=== PATIENT | female | born 1940 | race Caucasian/White ===

== ENCOUNTER 2020-06-30 23:09 | Observation (INO) | payer OTHER ==
--- OUTSIDE RECORDS SUMMARY | 2020-06-30 23:47 | XMS REPORT | Continuity of Care Document ---
:1940 Author Organization [facility] t Address [facility] [place] [address] Care Team Providers Name Role Phone Alex KING, Alex Primary Care Physician LUANNE NUNEZ Attending Clinician Unavailable Problems This patient has no known problems. Allergies, Adverse Reactions, Alerts This patient has no known allergies or adverse reactions. Social History Social Habit Start Date Stop Date Quantity Comments Source Sex Ass[birth year] At [birth year] [place] [facility] 00:00:00 00:00:00 Medications This patient has no known medications. Procedures This patient has no known procedures. Plan of Care Planned Activity Planned Date Details Comments Source Future Scheduled 2020-10-19 INFLUENZA VACCINE [place] [place] [employer] [facility] 00:00:00 [code = INFLUENZA VACCINE] Future Scheduled 2007-05-25 65+ PNEUMOCOCCAL [place] [employer] [facility] 00:00:00 VACCINE (1 of 1 - PPSV23) [code = 65+ PNEUMOCOCCAL VACCINE (1 of 1 - PPSV23)] Future Scheduled 1992 SHINGLES VACCINES (#1) [place] [facility] [employer] [facility] 00:00:00 [code = SHINGLES VACCINES (#1)] Future Scheduled 1960 Hepatitis C screening [facility] [employer] [facility] 00:00:00 (procedure) [code = 664808486] Future Scheduled 1958 COVID-19 VACCINE (1) Ghassan sweeney [employer] [facility] 00:00:00 [code = COVID-19 VACCINE (1)] Encounters Start End Encounter Admission Attending Care Care Encounter Source Date/Time Date/Time Type Type Clinicians Facility Department ID 2019-05-16 2019-05-16 Outpatient ENRIQUE [facility] [id number] [place] 00:00:00 00:00:00 [facility] [address] 2019-05-16 2019-05-16 Outpatient [facility] [id number] [place] 00:00:00 00:00:00 [facility] [address] Results This patient has no known results.
[2020-07-01] MEDS ORDERED: ONDANSETRON 4 MG/2 ML VIAL IV PRN (00:27)
[2020-07-01] MEDS ORDERED: ACETAMINOPHEN 500 MG TAB PO PRN (00:27)
[2020-07-01] MEDS ORDERED: MELATONIN 5 MG TABLET PO PRN (00:30)
[2020-07-01] MEDS ORDERED: BENZONATATE 100 MG CAP PO PRN (00:30)
--- NOTE | 2020-07-01 01:07 | P.HP ---
Certification for Inpatient Patient admitted to: Observation With expected LOS: <2 Midnights Patient will require the following post-hospital care: None Practitioner: I am a practitioner with admitting privileges, knowledge of patient current condition, hospital course, and medical plan of care. Services: Services provided to patient in accordance with Admission requirements found in Title 42 Section 412.3 of the Code of Federal Regulations <Tyler Roth - Last Filed: 07/01/20 01:05> Patient History Date of Service: 07/01/20 Reason for admission: COVID pneumonia History of Present Illness: 72-year-old female with history of hypertension, diabetes mellitus type 2 presented to [facility] emergency department for evaluation of back pain and cough. Patient reports that she has been having upper respiratory symptoms for approximately the last 10 days but persistent cough over the course of the last 6 days. Patient evaluated at [facility] emergency department with labs, CT thoracic and lumbar spine, CT PE protocol, chest x-ray, EKG. Labs significant for glucose 164 sodium 131 chloride 97 D-dimer 609 white blood cell count 5.9 CT PE protocol significant for no PE multi lobar interstitial pneumonia, 2 small noncalcified nodule seen in the right lower lobe which are deemed as low risk without need for follow up. ED provider at [facility] concerned as patient tested positive for Fernandes virus and saturations were in the low 90s, wish for evaluation and management to be continued here. - Past Medical/Surgical History -: Hypertension -: Diabetes mellitus type 2 -: Bladder suspension Psychosocial/ Personal History: Patient lives alone, is retired - Family History Family History: Reviewed- Non-Contributory - Social History Smoking Status: Never smoker Alcohol use: No CD- Drugs: No Caffeine use: Yes Place of Residence: Home <Tyler Roth - Last Filed: 07/01/20 01:05> Date of Service: 07/01/20 <Shimon Monique - Last Filed: 07/01/20 20:09> Review of Systems Respiratory: Cough Musculoskeletal: Back Pain <GonzalezTyler - Last Filed: 07/01/20 01:05> Physical Examination - Physical Exam General: Alert, In no apparent distress HEENT: Atraumatic, PERRLA, Mucous membr. moist/pink, EOMI, Sclerae nonicteric Neck: Supple, 2+ carotid pulse no bruit, No LAD, Without JVD or thyroid abnormality Respiratory: Clear to auscultation bilaterally, Normal air movement Cardiovascular: Regular rate/rhythm, Normal S1 S2 Gastrointestinal: Normal bowel sounds, No tenderness Musculoskeletal: No tenderness Integumentary: No rashes Neurological: Normal speech, Normal strength at 5/5 x4 extr, Normal tone, Normal affect <Tyler Roth - Last Filed: 07/01/20 01:05> - Studies Laboratory Data (last 24 hrs) 07/01/20 05:41: Sodium 129 L, Potassium 4.3, BUN 19 H, Creatinine 1.07, Glucose 215 H, Magnesium 1.7 L, Total Bilirubin 0.2, AST 16, ALT 28, Alkaline Phosphatase 95 07/01/20 05:41: WBC 3.80 L, Hgb 11.5 L, Hct 32.6 L, Plt Count 216 <Shimon Monique - Last Filed: 07/01/20 20:09> Assessment and Plan - Plan Assessment COVID-19 pneumonia Diabetes mellitus type 2 Hypertension Plan COVID-19 pneumonia: Patient currently without any oxygen requirement, will obtain daily room air saturations and room air saturations for home oxygen. Pulmonology consulted. Continue with IV steroids, oral ivermectin, oral supplements, aspirin. Appreciate further input from pulmonology. Diabetes mellitus type 2: A.c. HS Accu-Cheks, sliding scale insulin therapy. A1c with morning labs Hypertension: Obtain and continue home meds. Discharge Plan: Home Plan to discharge in: 24 Hours - Advance Directives Does patient have a Living Will: No Does patient have a Durable POA for Healthcare: No - Code Status/Comfort Care Code Status Assessed: Yes (Full code) Critical Care: No Time Spent Managing Pts Care (In Minutes): 55 <Tyler Roth - Last Filed: 07/01/20 01:05> - Plan Plan of care reviewed as noted above by Tyler Roth. COVID-19 pneumonia, continue treatment per protocol. Pulm consulted Anticipate dc home within 24 hrs if continues to do well <Shimon Monique - Last Filed: 07/01/20 20:09>
[2020-07-01] MEDS: NA CHLORIDE 0.9% 1,000 ML IV SCH ×2 (01:34→11:00)
[2020-07-01 01:51] LABS: C-Reactive Protein 24.3 mg/L (<3.00); Ferritin 512.5 ng/mL (8-388)
[2020-07-01 03:02] VITALS: BMI 24.7
[2020-07-01 04:27] LABS: Urine Appearance CLEAR (Clear); Urine Bilirubin NEGATIVE (Negataive); Urine Blood NEGATIVE (Negative); Urine Color YELLOW (Yellow); Urine Glucose NEGATIVE (Negative); Urine Protein TRACE (Negative); Urine Specific Gravity >=1.030 (1.005-1.030); Urine Urobilinogen 0.2 mg/dL (0.2-1.0)
[2020-07-01 04:36] LABS: Urine Microscopic Reflex ORDER UMIC
[2020-07-01 05:06] LABS: Urine Bacteria <20 /HPF (<20); Urine RBC <5 /HPF (NONE SEEN); Urine Urothelial Cells <5 /HPF (NONE SEEN)
[2020-07-01 06:00] LABS: Absolute Lymphocytes (CBC) 0.5 K/uL (0.7-4.9); Basophils % 0.4 % (0-1.3); Hematocrit 32.6 % (36.0-45.0); Lymphocytes % 13.1 % (15.3-44.8); MPV 7.3 fL (7.6-11.3); RBC Red Blood Cell Count 3.39 M/uL (3.86-4.86)
[2020-07-01 06:32] LABS: Albumin 2.9 g/dL (3.4-5.0); Bilirubin Total 0.2 mg/dL (0.2-1.0); Magnesium 1.7 mg/dL (1.8-2.4); Potassium 4.3 mmol/L (3.5-5.1); Protein, Total 6.3 g/dL (6.4-8.2); Thyroid Stimulating Hormone 0.917 uIU/mL (0.360-3.740)
[2020-07-01] MEDS: INSULIN -REGULAR HUMAN 50 UNIT/0.5 ML ML SQ SCH ×2 (07:30→11:30)
[2020-07-01] MEDS: ASCORBIC ACID 500 MG TABLET PO SCH ×2 (08:01→13:02)
[2020-07-01] MEDS ORDERED: METHYLPREDNISOLONE 40 MG INJ IV SCH (09:00)
[2020-07-01] MEDS ORDERED: VITAMIN D 1000 UNIT TAB PO SCH (09:00)
[2020-07-01] MEDS ORDERED: MAGNESIUM SULFATE 1 gm IVPB 1 GM/100 ML BAG IV ONE (09:00)
[2020-07-01] MEDS ORDERED: ZINC SULFATE 220 MG CAP PO SCH (09:00)
[2020-07-01] MEDS ORDERED: IVERMECTIN 3 MG TABLET PO SCH (09:00)
[2020-07-01] MEDS ORDERED: ASPIRIN EC 81 MG TAB PO SCH (09:00)
[2020-07-01] MEDS ORDERED: THIAMINE HCL 100 MG TABLET PO SCH (09:00)
[2020-07-01] MEDS ORDERED: ENOXAPARIN 40 MG/0.4 ML SQ SCH (09:00)
[2020-07-01 11:36] LABS: C-Reactive Protein 26.6 mg/L (<3.00); Ferritin 480.2 ng/mL (8-388)
[2020-07-01 12:08] VITALS: BP 111/54; TEMP 97.5; O2SAT 96
--- NOTE | 2020-07-01 20:15 | P.DS ---
Admission Date: 06/30/20 Discharge Date: 07/01/20 Disposition: ROUTINE DISCHARGE Discharge Condition: GOOD Reason for Admission: COVID pneumonia Consultations: Pulm - Dr. Suarez Procedures: CT Cspine, Chest, Abd, pelvis: done at OSH: osteopenia and degenerative changes in c-spine, no fracture. Vacuum disk phenomenon at C5-C6. Mild diffuse disk bulge of 2-3 mm at L4-L5 and L5-S1. 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 Problem List COVID-19 pneumonia Diabetes mellitus type 2 Hypertension Brief History of Present Illness: 72-year-old female with history of hypertension, diabetes mellitus type 2 presented to [facility] emergency department for evaluation of back pain and cough. Patient reports that she has been having upper respiratory symptoms for approximately the last 10 days but persistent cough over the course of the last 6 days. Patient evaluated at [facility] emergency department with labs, CT thoracic and lumbar spine, CT PE protocol, chest x-ray, EKG. Labs significant for glucose 164 sodium 131 chloride 97 D-dimer 609 white blood cell count 5.9 CT PE protocol significant for no PE multi lobar interstitial pneumonia, 2 small noncalcified nodule seen in the right lower lobe which are deemed as low risk without need for follow up. ED provider at [facility] concerned as patient tested positive for Fernandes virus and saturations were in the low 90s, wish for evaluation and management to be continued here. Hospital Course: Patient was transferred to our hospital, treated for COVID-19 pneumonia per protocol. The following morning she remained stable, breathing comfortably on room air. Her neck/lumbar pain resolved, and she reportedly felt much better. She was ambulated and her SpO2 remained >94%. She did not qualify for home oxygen. She was discharged home to continue prednisone, vitamin supplementation, and aspirin. She will f/u with Dr. Suarez in 1-[address] findings were discussed with the patient and she was advised to f/u with Neurology in ~3-4 weeks to further evaluate with MRI. Vital Signs/Physical Exam: Physical Exam General: Alert, In no apparent distress HEENT: Atraumatic, PERRLA, Mucous membr. moist/pink, EOMI, Sclerae nonicteric Neck: Supple, no bruit, No LAD, no spinal tenderness Respiratory: Clear to auscultation bilaterally, Normal air movement Cardiovascular: Regular rate/rhythm, Normal S1 S2 Gastrointestinal: Normal bowel sounds, No tenderness Musculoskeletal: No tenderness Integumentary: No rashes Neurological: Normal speech, Normal strength at 5/5 x4 extr, Normal tone, Normal affect Temp Pulse Resp BP Pulse Ox 97.5 F 60 18 111/54 L 96 07/01/20 12:00 07/01/20 12:00 07/01/20 12:00 07/01/20 12:00 07/01/20 12:00 Laboratory Data at Discharge: WBC 3.80 K/uL (4.3-10.9) L 07/01/20 05:41 Hgb 11.5 g/dL (12.0-15.0) L 07/01/20 05:41 Hct 32.6 % (36.0-45.0) L 07/01/20 05:41 Plt Count 216 K/uL (152-406) 07/01/20 05:41 Sodium 129 mmol/L (136-145) L 07/01/20 05:41 Potassium 4.3 mmol/L (3.5-5.1) 07/01/20 05:41 BUN 19 mg/dL (7-18) H 07/01/20 05:41 Creatinine 1.07 mg/dL (0.55-1.3) 07/01/20 05:41 Glucose 215 mg/dL (74-106) H 07/01/20 05:41 Magnesium 1.7 mg/dL (1.8-2.4) L 07/01/20 05:41 Total Bilirubin 0.2 mg/dL (0.2-1.0) 07/01/20 05:41 AST 16 U/L (15-37) 07/01/20 05:41 ALT 28 U/L (12-78) 07/01/20 05:41 Alkaline Phosphatase 95 U/L (45-117) 07/01/20 05:41 Home Medications: RX: Ascorbic Acid [Vitamin C*] 500 mg PO QID 30 Days #120 tablet 07/01/20 RX: Atorvastatin Calcium 40 mg PO DAILY 07/01/20 RX: Cholecalciferol (Vitamin D3) [Vitamin D 1000 Iu Tab*] 4,000 unit PO DAILY 30 Days #120 tab 07/01/20 RX: Cyanocobalamin (Vitamin B-12) [Vitamin B-12] 3,000 mcg PO DAILY 07/01/20 RX: Ivermectin 12 mg PO Q48H 1 Days #4 tablet 07/01/20 RX: Levothyroxine Sodium [Levothyroxine] 88 mcg PO 0600 07/01/20 RX: Lisinopril/Hydrochlorothiazide [Lisinopril-Hctz 20-12.5 mg Tab] 1 each PO DAILY 07/01/20 RX: Multivitamin [One-Daily Multi-Vitamin] 1 each PO DAILY 07/01/20 RX: Sitagliptin Phosphate [Januvia*] 100 mg PO DAILY 07/01/20 RX: Thiamine HCl [Vitamin B-1*] 200 mg PO DAILY 30 Days #60 tablet 07/01/20 RX: Zinc Sulfate [Zinc Sulfate*] 220 mg PO DAILY 30 Days #30 cap 07/01/20 RX: predniSONE [Prednisone*] 20 mg PO SEECOM 14 Days #21 tab 07/01/20 New Medications: RX: Ivermectin 12 mg PO Q48H 1 Days #4 tablet RX: predniSONE [Prednisone*] 20 mg PO SEECOM 14 Days #21 tab RX: Thiamine HCl [Vitamin B-1*] 200 mg PO DAILY 30 Days #60 tablet RX: Ascorbic Acid [Vitamin C*] 500 mg PO QID 30 Days #120 tablet RX: Cholecalciferol (Vitamin D3) [Vitamin D 1000 Iu Tab*] 4,000 unit PO DAILY 30 Days #120 tab RX: Zinc Sulfate [Zinc Sulfate*] 220 mg PO DAILY 30 Days #30 cap Physician Discharge Instructions: Your found to have COVID 19 pneumonia, you did not require oxygen supplementation. Inflammatory markers improved with treatment. You are discharged home well with 2 weeks of prednisone, 1 month of vitamins, 1 more dose of Ivermectin (oon 07/02), and recommended to take a daily aspirin 325mg for at least 1 month. Please follow up with Dr. Suarez in 1-2 weeks. Call his office to schedule the appointment. Review of CT scan done at [place] showed - osteopenia and degenerative changes in your neck common no fracture. And there was a noted "Vacuum disk phenomenon at C5-C6". He also noted above mild diffuse disk bulge of 2-3 mm at L4-L5 and L5- S1. 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 These are likely incidental findings and are not contributing to your symptoms, and typically do not require treatment. However, you should follow up with Neurology in the next few weeks to have an MRI to further evaluate and see if any change. Please call Dr. Gillespie's (Neurology) office to schedule follow up appointment. Diet: ADA Activity: Ad adrianna Followup: Fidel Saurez MD [ACTIVE - CAN ADMIT] - 1-2 Weeks (lithographic proofer- call to schedule an appointment ) Arnulfo Gillespie MD [ASSOCIATE-ACTIVE - CAN ADMIT] - (neurologist- call to schedule an appointment ) Time spent managing pt's care (in minutes): 40
[2020-07-01] MEDS ORDERED: GLUCERNA SHAKE 237 ML CAN PO SCH (21:00)
== END 2020-07-01 15:30 | disposition home or self-care (01) ==
LOC: EDBD → 4TH 23:43
PROVIDERS: ADMIT Hospitalist; ATTEND Hospitalist
DX: U07.1 COVID-19 (principal); J12.82 Pneumonia due to coronavirus disease 2019; E11.9 Type 2 diabetes mellitus without complications; I10 Essential (primary) hypertension
CPT/HCPCS: 85025; 36415; 83735; 82947 ×2; 84443; 83036; 84439; 82728 ×2; 80053; 86140 ×2; J1650; J3475; J7030; J2920; 81003; 81015; G0378